=== PATIENT | female | born 1950 ===

== ENCOUNTER 2018-08-11 13:37 | Outpatient (CLI) | payer OTHER | END 2018-08-11 13:40 | disposition home or self-care (01) | LOC: SONOGRAMA 13:37 | DX: N60.11 Diffuse cystic mastopathy of right breast (principal); N60.12 Diffuse cystic mastopathy of left breast ==

== ENCOUNTER 2018-08-22 08:23 | Outpatient (CLI) | payer OTHER | END 2018-08-22 08:31 | disposition home or self-care (01) | LOC: SONOGRAMA 08:23 | DX: N61.1 Abscess of the breast and nipple (principal); N61.0 Mastitis without abscess ==

== ENCOUNTER 2018-08-22 11:20 | Outpatient (CLI) | payer OTHER | END 2018-08-22 11:29 | disposition home or self-care (01) | LOC: LAB 11:20 | DX: N61.1 Abscess of the breast and nipple (principal) ==

== ENCOUNTER 2018-11-03 08:16 | Day surgery (SDC) | payer OTHER ==
[~2018-11-03 08:16] MED LIST: CITALOPRAM HBR40 MG PO; GABAPENTIN100 MG PO; TIZANIDINE PO; ZANTAC300 MG PO
== END 2018-11-03 16:25 | disposition home or self-care (01) ==
LOC: CIR.AMB 08:16
DX: L72.0 Epidermal cyst (principal)

== ENCOUNTER 2020-03-01 15:59 | Emergency (ER) | payer OTHER ==
[~2020-03-01] VITALS: Ht 149.9 cm; Wt 64.4 kg
== END 2020-03-01 19:09 | disposition home or self-care (01) ==
LOC: ER 15:59
DX: M54.5 Low back pain (principal); M54.2 Cervicalgia

== ENCOUNTER 2020-06-03 09:41 | Outpatient (CLI) | payer OTHER | END 2020-06-03 11:00 | disposition home or self-care (01) | LOC: OFIC 805 09:41 | PROVIDERS: ATTEND Otolaryngology Otology & Neurotology | DX: K21.9 Gastro-esophageal reflux disease without esophagitis (principal); J02.8 Acute pharyngitis due to other specified organisms; H90.3 Sensorineural hearing loss, bilateral ==

== ENCOUNTER → 2020-09-09 | Outpatient (CLI) | payer OTHER | END | disposition home or self-care (01) | LOC: OFIC 805 11:00 | PROVIDERS: ATTEND Otolaryngology Otology & Neurotology | DX: K21.9 Gastro-esophageal reflux disease without esophagitis (principal); J02.8 Acute pharyngitis due to other specified organisms; H90.5 Unspecified sensorineural hearing loss ==